=== PATIENT | female | born 1975 | race Caucasian/White ===

== ENCOUNTER 2017-03-22 10:43 | Emergency (ER) | payer MEDICAID ==
[~2017-03-22] VITALS: Ht 165.1 cm; Wt 87.2 kg
[~2017-03-22 10:43] MED LIST: ALPR-475 PO; DOXYCYCLINE PO; FLUO20CA19 PO; HYDR-3138 PO
[2017-03-22] MEDS ORDERED: KETOROLAC 30 MG/1 ML IM ONE (12:00)
[2017-03-22] MEDS ORDERED: KETOROLAC 30 MG/1 ML ONE (12:02)
[2017-03-22 12:18] LABS: HCG UR OBC PASS
[2017-03-22 12:34] LABS: BLOOD UREA NITROGEN 19 mg/dL (7-18)
[2017-03-22] MEDS ORDERED: HYDROmorphone 1 MG/ML, 1ML ONE (13:06)
[2017-03-22] MEDS ORDERED: ONDANSETRON ODT 4 MG ONE (13:10)
[2017-03-22 13:41] VITALS: BP 112/69
[2017-03-22] MEDS ORDERED: ONDANSETRON ODT 4 MG PO ONE (14:00)
[2017-03-22] MEDS ORDERED: HYDROmorphone 1 MG/ML, 1ML IM ONE (14:00)
== END 2017-03-22 13:49 | disposition home or self-care (01) ==
LOC: ED 11:08
DX: N83.02 Follicular cyst of left ovary (principal); N94.10 Unspecified dyspareunia
CPT/HCPCS: 36415; 76830; 80048; 81003; 81025; 82040; 85025; 87210; 87491; 87591; 87808; 96372; 99285; J1170; J1885; Q0162

== ENCOUNTER 2017-05-25 16:41 | Emergency (ER) | payer MEDICAID ==
[~2017-05-25] VITALS: Ht 165.1 cm; Wt 84.5 kg
[~2017-05-25 16:41] MED LIST changes: -HYDR-3138 PO; +HYDR-3237 PO
[2017-05-25] MEDS ORDERED: SODIUM CHLORIDE FLUSH 10ML SYR IVF ONE (17:00)
[2017-05-25] MEDS ORDERED: FAMOTIDINE 20 MG/2 ML IVP ONE (17:00)
[2017-05-25] MEDS ORDERED: ONDANSETRON 2MG/ML, 2ML IVPush ONE (17:00)
[2017-05-25] MEDS ORDERED: MORPHINE SULFATE 4 MG/ML, 1ML IVPush PRN (17:00)
[2017-05-25 17:14] LABS: HEMATOCRIT 39.3 % (34.6-47.8); HEMOGLOBIN 13.1 g/dL (11.7-16.4); WHITE BLOOD COUNT 13.6 x10^3/uL (3.4-10)
[2017-05-25 17:21] LABS: ASPARTATE AMINO TRANSFERASE 12 U/L (15-37); BLOOD UREA NITROGEN 17 mg/dL (7-18)
[2017-05-25] MEDS ORDERED: META800T PO (18:49)
[2017-05-25] MEDS ORDERED: BUPR200T PO (18:49)
[2017-05-25] MEDS ORDERED: OXYC-306 PO (18:49)
[2017-05-25] MEDS ORDERED: MELO7.5T31 PO (18:49)
[2017-05-25] MEDS ORDERED: DOXY100T10 PO (18:49)
[2017-05-25] MEDS ORDERED: ONDANSETRON 2MG/ML, 2ML ONE (19:02)
[2017-05-25] MEDS ORDERED: MORPHINE SULFATE 4 MG/ML, 1ML ONE (19:02)
[2017-05-25] MEDS ORDERED: FAMOTIDINE 20 MG/2 ML ONE (19:03)
[2017-05-25] MEDS ORDERED: AMPICILLIN/SULBACTAM 3 GM in SODIUM CHLORIDE 0.9% 100 ML IV ONE (20:00)
[2017-05-25] MEDS ORDERED: AMPICILLIN/SULBACTAM 3 GM IV ONE (20:00)
[2017-05-25] MEDS ORDERED: SODIUM CHLORIDE 0.9% 1,000ML IVBOLUS ONE (20:00)
[2017-05-25 22:21] VITALS: BP 111/67
== END 2017-05-25 22:25 | disposition home or self-care (01) ==
LOC: ED 19:56
DX: S30.1XXA Contusion of abdominal wall, initial encounter (principal); L03.115 Cellulitis of right lower limb; Z98.51 Tubal ligation status; X58.XXXA Exposure to other specified factors, initial encounter; Y93.89 Activity, other specified; Y92.89 Other specified places as the place of occurrence of the external cause; Y99.9 Unspecified external cause status
CPT/HCPCS: 36415; 74022; 76700; 80053; 81003; 83605; 83690; 84703; 85025; 87040; 93971; 96365; 96366; 96375; 99285; J0295; J2405; J7030; S0028

== ENCOUNTER 2017-05-27 08:52 | Emergency (ER) | payer MEDICAID ==
[~2017-05-27] VITALS: Ht 165.1 cm; Wt 85.6 kg
[~2017-05-27 08:52] MED LIST changes: +BUPR200T PO; +DOXY100T10 PO; +MELO7.5T31 PO; +META800T PO; +OXYC-306 PO
[2017-05-27 10:00] LABS: HEMATOCRIT 33.4 % (34.6-47.8); HEMOGLOBIN 11.3 g/dL (11.7-16.4); WHITE BLOOD COUNT 8.1 x10^3/uL (3.4-10)
[2017-05-27 10:24] VITALS: BP 134/68
[2017-05-28] MEDS ORDERED: CLIN300C8 PO (22:35)
== END 2017-05-27 10:26 | disposition home or self-care (01) ==
LOC: ED 09:24
DX: L03.115 Cellulitis of right lower limb (principal); F43.10 Post-traumatic stress disorder, unspecified; F32.9 Major depressive disorder, single episode, unspecified; F17.210 Nicotine dependence, cigarettes, uncomplicated; D25.9 Leiomyoma of uterus, unspecified
CPT/HCPCS: 36415; 85025; 99283

== ENCOUNTER 2017-05-28 21:20 | Inpatient (IN) | payer MEDICAID ==
[~2017-05-28] VITALS: Ht 165.1 cm; Wt 86.4 kg
[2017-05-28] MEDS ORDERED: HYDROcodone/APAP 5/325 TABLET PO ONE (22:00)
[2017-05-28] MEDS ORDERED: HYDROcodone/APAP 5/325 TABLET ONE (22:08)
[2017-05-28] MEDS ORDERED: CEFTAROLINE 600 MG in SODIUM CHLORIDE 0.9% 100 ML IV ONE (22:30)
[2017-05-28] MEDS ORDERED: SODIUM CHLORIDE 0.9% 1,000ML IVBOLUS ONE (22:30)
[2017-05-28] MEDS ORDERED: SODIUM CHLORIDE FLUSH 10ML SYR IVF ONE (22:30)
[2017-05-28] MEDS ORDERED: CLIN300C8 PO (22:35)
[2017-05-28 22:46] LABS: HEMATOCRIT 37.1 % (34.6-47.8); HEMOGLOBIN 12.4 g/dL (11.7-16.4); WHITE BLOOD COUNT 11.5 x10^3/uL (3.4-10)
[2017-05-28 22:48] LABS: BLOOD UREA NITROGEN 13 mg/dL (7-18)
[2017-05-28] MEDS ORDERED: SODIUM CHLORIDE 0.9% 1,000 ML IV ONE (23:28)
[2017-05-28] MEDS ORDERED: MORPHINE SULFATE 4 MG/ML, 1ML IVPush PRN (23:30)
[2017-05-28] MEDS ORDERED: ONDANSETRON 2MG/ML, 2ML IVPush PRN (23:30)
[2017-05-29] MEDS ORDERED: LABETALOL 5MG/ML, 20ML IVPush PRN
[2017-05-29] MEDS ORDERED: POLYETHYLENE GLYCOL 17 GM PACKET PO PRN
[2017-05-29] MEDS ORDERED: ONDANSETRON 2MG/ML, 2ML IVPush PRN
[2017-05-29] MEDS ORDERED: morphine SULFATE 10 MG/ML, 1ML IVPush PRN
[2017-05-29] MEDS ORDERED: ACETAMINOPHEN 325 MG TABLET PO PRN
[2017-05-29] MEDS ORDERED: hydrALAzine 20 MG/ML, 1ML IVPush PRN
[2017-05-29] MEDS ORDERED: BISACODYL 10 MG SUPP PR PRN
[2017-05-29] MEDS ORDERED: VANCOMYCIN PMX 1GM/200ML 200 ML IV ONE (00:30)
[2017-05-29] MEDS ORDERED: VANCOMYCIN PER PHARMACY MC PRN (00:30)
[2017-05-29] MEDS: ENOXAPARIN 40 MG/0.4 ML SQ SCH ×2 (01:14→23:20)
[2017-05-29] MEDS: SODIUM CHLORIDE 0.9% 1,000 ML IV SCH ×2 (01:14→14:49)
[2017-05-29] MEDS ORDERED: PHARMACOKINETIC MONITORING MC PRN (01:30)
[2017-05-29 01:32] LABS: PATH.CAST-FLAG NOT PRESENT; SPERM-FLAG NOT PRESENT; SRC-FLAG NOT PRESENT; XTAL-FLAG NOT PRESENT; YLC-FLAG NOT PRESENT
[2017-05-29 01:53] VITALS: BP 109/67
[2017-05-29] MEDS: VANCOMYCIN 1,700 MG in SODIUM CHLORIDE 0.9% 250 ML IV SCH ×2 (02:45→14:50)
[2017-05-29] MEDS ORDERED: DIPHENHYDRAMINE 25 MG CAPSULE PO ONE (04:30)
[2017-05-29] MEDS: AMPICILLIN/SULBACTAM 3 GM in SODIUM CHLORIDE 0.9% 100 ML IV SCH ×4 (04:43→23:16)
[2017-05-29] MEDS ORDERED: OMNIPAQUE 350 MG/ML, 100ML BOTTLE ONE (04:48)
[2017-05-29 05:38] LABS: BLOOD UREA NITROGEN 13 mg/dL (7-18)
[2017-05-29 05:42] LABS: ASPARTATE AMINO TRANSFERASE 11 U/L (15-37)
[2017-05-29 05:47] LABS: HEMATOCRIT 32.2 % (34.6-47.8); HEMOGLOBIN 10.9 g/dL (11.7-16.4); WHITE BLOOD COUNT 8.3 x10^3/uL (3.4-10)
[2017-05-29] MEDS: Metaxalone** 800 MG PO SCH ×3 (08:34→21:56)
[2017-05-29] MEDS: DOXYCYCLINE 50MG CAPSULE PO SCH (08:35)
[2017-05-29] MEDS: SENNA/DOCUSATE TABLET PO SCH (08:35)
[2017-05-29] MEDS: BUPROPION 100 MG TABLET PO SCH ×2 (08:36→21:56)
[2017-05-29 08:40] VITALS: BP 108/66
[2017-05-29] MEDS: DIPHENHYDRAMINE 50 MG/ML, 1ML IVPush PRN (14:50)
[2017-05-29 14:57] VITALS: BP 109/68
[2017-05-29] MEDS: OXYcodone IR 5MG TABLET PO PRN ×2 (17:18→22:06)
[2017-05-29 19:12] VITALS: BP 109/62
[2017-05-30 01:59] VITALS: BP 106/70
[2017-05-30] MEDS: DIPHENHYDRAMINE 50 MG/ML, 1ML IVPush PRN ×2 (02:04→14:19)
[2017-05-30] MEDS: VANCOMYCIN 1,700 MG in SODIUM CHLORIDE 0.9% 250 ML IV SCH ×2 (02:06→14:19)
[2017-05-30] MEDS: AMPICILLIN/SULBACTAM 3 GM in SODIUM CHLORIDE 0.9% 100 ML IV SCH ×4 (05:22→22:51)
[2017-05-30 07:50] VITALS: BP 114/71
[2017-05-30] MEDS: SENNA/DOCUSATE TABLET PO SCH (07:57)
[2017-05-30] MEDS: Metaxalone** 800 MG PO SCH (07:57)
[2017-05-30] MEDS: DOXYCYCLINE 50MG CAPSULE PO SCH (07:57)
[2017-05-30] MEDS: BUPROPION 100 MG TABLET PO SCH ×2 (07:58→21:03)
[2017-05-30] MEDS: OXYcodone IR 5MG TABLET PO PRN ×2 (10:41→14:22)
[2017-05-30 14:17] VITALS: BP 119/79
[2017-05-30 18:36] LABS: HCG UR OBC PASS
[2017-05-30] MEDS ORDERED: MIDAZOLAM 1 MG/ML, 2ML ONE (19:01)
[2017-05-30] MEDS ORDERED: FENTANYL PF 100 MCG/2ML ONE ×2 (19:01)
[2017-05-30] MEDS ORDERED: BALANCED SALT OPHTH IRRIG SOLN 18ML ONE (19:07)
[2017-05-30] MEDS ORDERED: PROPOFOL 10 MG/ML, 20ML ONE (19:21)
[2017-05-30] MEDS ORDERED: DEXAMETHASONE 4 MG/ML, 1ML ONE (19:21)
[2017-05-30] MEDS ORDERED: ONDANSETRON 2MG/ML, 2ML ONE (19:21)
[2017-05-30] MEDS ORDERED: PROMETHAZINE 25 MG/ML, 1ML IV PRN (19:30)
[2017-05-30] MEDS ORDERED: LABETALOL 5MG/ML, 20ML IV PRN (19:30)
[2017-05-30] MEDS ORDERED: ONDANSETRON 2MG/ML, 2ML IVPush PRN (19:30)
[2017-05-30] MEDS ORDERED: MEPERIDINE/PF 25MG/0.5ML IVPush PRN (19:30)
[2017-05-30] MEDS ORDERED: OXYcodone 5 MG/5 ML ORAL.SOL UDC PO PRN (19:30)
[2017-05-30] MEDS ORDERED: FENTANYL PF 100 MCG/2ML IV PRN (19:30)
[2017-05-30] MEDS ORDERED: hydrALAzine 20 MG/ML, 1ML IV PRN (19:30)
[2017-05-30] MEDS ORDERED: HYDROmorphone 2 MG/ML, 1ML ONE (19:55)
[2017-05-30] MEDS: HYDROmorphone 1 MG/ML, 1ML IV PRN ×4 (19:57→20:15)
[2017-05-30 20:45] VITALS: BP 111/68
[2017-05-30] MEDS: PRAZOSIN 1 MG CAPSULE PO SCH (21:03)
[2017-05-30] MEDS: OXYcodone/APAP 5/325MG TABLET PO PRN (21:12)
[2017-05-30 23:42] VITALS: BP 106/65
[2017-05-31] MEDS: VANCOMYCIN 1,700 MG in SODIUM CHLORIDE 0.9% 250 ML IV SCH ×2 (02:01→14:42)
[2017-05-31] MEDS: DIPHENHYDRAMINE 50 MG/ML, 1ML IVPush PRN ×2 (02:01→14:42)
[2017-05-31] MEDS: OXYcodone/APAP 5/325MG TABLET PO PRN ×5 (02:09→20:04)
[2017-05-31 02:53] VITALS: BP 96/50
[2017-05-31] MEDS: AMPICILLIN/SULBACTAM 3 GM in SODIUM CHLORIDE 0.9% 100 ML IV SCH ×4 (05:18→23:17)
[2017-05-31 08:08] VITALS: BP 101/66
[2017-05-31] MEDS: SENNA/DOCUSATE TABLET PO SCH (09:00)
[2017-05-31] MEDS: BUPROPION 100 MG TABLET PO SCH ×2 (09:10→20:05)
[2017-05-31] MEDS: DOXYCYCLINE 50MG CAPSULE PO SCH (09:10)
[2017-05-31] MEDS: PRAZOSIN 1 MG CAPSULE PO SCH ×2 (10:04→20:04)
[2017-05-31 14:50] VITALS: BP 119/80
[2017-05-31 19:19] VITALS: BP 119/71
[2017-06-01] MEDS: OXYcodone/APAP 5/325MG TABLET PO PRN ×6 (00:19→23:17)
[2017-06-01 01:24] VITALS: BP 110/75
[2017-06-01] MEDS: DIPHENHYDRAMINE 50 MG/ML, 1ML IVPush PRN ×2 (02:04→14:35)
[2017-06-01] MEDS: VANCOMYCIN 1,700 MG in SODIUM CHLORIDE 0.9% 250 ML IV SCH ×2 (02:04→14:35)
[2017-06-01] MEDS: AMPICILLIN/SULBACTAM 3 GM in SODIUM CHLORIDE 0.9% 100 ML IV SCH ×4 (04:40→23:08)
[2017-06-01 07:58] VITALS: BP 118/78
[2017-06-01] MEDS: PRAZOSIN 1 MG CAPSULE PO SCH ×2 (08:45→21:17)
[2017-06-01] MEDS: DOXYCYCLINE 50MG CAPSULE PO SCH (08:46)
[2017-06-01] MEDS: BUPROPION 100 MG TABLET PO SCH ×2 (08:46→21:18)
[2017-06-01] MEDS: SENNA/DOCUSATE TABLET PO SCH (08:47)
[2017-06-01 13:46] VITALS: BP 112/71
[2017-06-01 22:18] VITALS: BP 117/75
[2017-06-02] MEDS: DIPHENHYDRAMINE 50 MG/ML, 1ML IVPush PRN ×2 (01:59→15:26)
[2017-06-02] MEDS: VANCOMYCIN 1,700 MG in SODIUM CHLORIDE 0.9% 250 ML IV SCH ×2 (01:59→15:26)
[2017-06-02 02:01] VITALS: BP 118/79
[2017-06-02] MEDS: AMPICILLIN/SULBACTAM 3 GM in SODIUM CHLORIDE 0.9% 100 ML IV SCH ×3 (05:19→17:29)
[2017-06-02 06:59] VITALS: BP 115/79
[2017-06-02] MEDS: PRAZOSIN 1 MG CAPSULE PO SCH (09:18)
[2017-06-02] MEDS: DOXYCYCLINE 50MG CAPSULE PO SCH (09:18)
[2017-06-02] MEDS: SENNA/DOCUSATE TABLET PO SCH (09:18)
[2017-06-02] MEDS: BUPROPION 100 MG TABLET PO SCH ×2 (09:18→17:51)
[2017-06-02] MEDS: OXYcodone/APAP 5/325MG TABLET PO PRN ×3 (09:26→20:51)
[2017-06-02 12:40] VITALS: BP 114/79
[2017-06-02 19:40] VITALS: BP 108/64
[2017-06-02] MEDS: PRAZOSIN 2 MG CAPSULE PO SCH (20:52)
[2017-06-03] MEDS: AMPICILLIN/SULBACTAM 3 GM in SODIUM CHLORIDE 0.9% 100 ML IV SCH ×4 (01:16→19:57)
[2017-06-03 01:26] VITALS: BP 106/59
[2017-06-03] MEDS: OXYcodone/APAP 5/325MG TABLET PO PRN ×5 (01:33→21:20)
[2017-06-03] MEDS: VANCOMYCIN 1,700 MG in SODIUM CHLORIDE 0.9% 250 ML IV SCH (02:21)
[2017-06-03 07:57] VITALS: BP 114/64
[2017-06-03] MEDS: DOXYCYCLINE 50MG CAPSULE PO SCH (10:00)
[2017-06-03] MEDS: BUPROPION 100 MG TABLET PO SCH ×2 (10:00→19:57)
[2017-06-03] MEDS: SENNA/DOCUSATE TABLET PO SCH (10:02)
[2017-06-03] MEDS: PRAZOSIN 1 MG CAPSULE PO SCH (10:08)
[2017-06-03 13:59] VITALS: BP 128/74
[2017-06-03 19:01] VITALS: BP 126/71
[2017-06-03] MEDS: PRAZOSIN 2 MG CAPSULE PO SCH (19:57)
[2017-06-04] MEDS ORDERED: VANCOMYCIN 1,700 MG in SODIUM CHLORIDE 0.9% 250 ML IV SCH
[2017-06-04] MEDS: DIPHENHYDRAMINE 50 MG/ML, 1ML IVPush PRN (00:18)
[2017-06-04 00:35] VITALS: BP 113/69
[2017-06-04] MEDS: AMPICILLIN/SULBACTAM 3 GM in SODIUM CHLORIDE 0.9% 100 ML IV SCH ×2 (02:34→08:33)
[2017-06-04 07:38] VITALS: BP 99/59
[2017-06-04] MEDS: SENNA/DOCUSATE TABLET PO SCH (08:34)
[2017-06-04] MEDS: DOXYCYCLINE 50MG CAPSULE PO SCH (08:34)
[2017-06-04] MEDS: BUPROPION 100 MG TABLET PO SCH (08:35)
[2017-06-04] MEDS: OXYcodone/APAP 5/325MG TABLET PO PRN ×2 (08:43→13:02)
[2017-06-04] MEDS ORDERED: LACT1CAP24 PO (11:48)
[2017-06-04] MEDS ORDERED: POLY17PO5 PO (11:48)
[2017-06-04] MEDS ORDERED: PRAZ2CAP2 PO (11:54)
[2017-06-04] MEDS ORDERED: PRAZ1CAP2 PO (11:54)
[2017-06-04] MEDS ORDERED: BUPR100T11 PO (11:54)
[2017-06-04] MEDS ORDERED: LEVO500T47 PO (12:07)
[2017-06-04] MEDS ORDERED: LEVOFLOXACIN 500 MG TABLET PO SCH (12:30)
[2017-06-04 13:00] VITALS: BP 120/69
[2017-06-04] MEDS: PRAZOSIN 1 MG CAPSULE PO SCH (13:02)
[2017-06-04 13:41] VITALS: BP 116/73
== END 2017-06-04 14:15 | disposition home or self-care (01) | DRG 871 ==
LOC: ED 22:43 → EDIP 23:28 → 4NOR 05-29 00:16
PROVIDERS: ADMIT Internal Medicine; ATTEND Internal Medicine
PROC: 0Y9H0ZZ Drainage of Right Lower Leg, Open Approach (ICD-10-PCS; principal; 2017-05-30 19:30)
DX: A41.9 Sepsis, unspecified organism (principal); E43 Unspecified severe protein-calorie malnutrition; F33.1 Major depressive disorder, recurrent, moderate; L03.115 Cellulitis of right lower limb; F11.20 Opioid dependence, uncomplicated; N39.0 Urinary tract infection, site not specified; B96.20 Unspecified Escherichia coli [E. coli] as the cause of diseases classified elsewhere; F06.4 Anxiety disorder due to known physiological condition; F43.0 Acute stress reaction; F17.200 Nicotine dependence, unspecified, uncomplicated; F43.10 Post-traumatic stress disorder, unspecified; I10 Essential (primary) hypertension; G89.29 Other chronic pain; J45.909 Unspecified asthma, uncomplicated; Z79.2 Long term (current) use of antibiotics; Z81.8 Family history of other mental and behavioral disorders; Z83.3 Family history of diabetes mellitus; Z86.14 Personal history of Methicillin resistant Staphylococcus aureus infection; Z68.31 Body mass index [BMI] 31.0-31.9, adult; Z88.8 Allergy status to other drugs, medicaments and biological substances; Z88.2 Allergy status to sulfonamides
CPT/HCPCS: 36415; 80048; 80053; 80061; 80202; 81001; 81025; 82040; 82565; 83036; 83735; 84439; 84443; 85025; 87015; 87040; 87070; 87075; 87077; 87086; 87102; 87116; 87186; 87205; 87206; 96365; J0295; J0712; J1100; J1170; J1650; J2250; J2405; J2704; J3010; J3370; Q9967; J1200; J7030; J7050; Q0163

== ENCOUNTER 2017-08-06 03:14 | Emergency (ER) | payer MEDICAID ==
[~2017-08-06] VITALS: Ht 165.1 cm; Wt 80.0 kg
[~2017-08-06 03:14] MED LIST changes: +BUPR100T11 PO; +CLIN300C8 PO; +LACT1CAP24 PO; +LEVO500T47 PO; +POLY17PO5 PO; +PRAZ1CAP2 PO; +PRAZ2CAP2 PO
[2017-08-06 03:22] VITALS: BP 130/99
== END 2017-08-06 05:12 | disposition home or self-care (01) ==
LOC: ED 04:03
DX: S06.0X1A Concussion with loss of consciousness of 30 minutes or less, initial encounter (principal); F32.9 Major depressive disorder, single episode, unspecified; Z87.891 Personal history of nicotine dependence; W22.01XA Walked into wall, initial encounter; Y93.89 Activity, other specified; Y92.89 Other specified places as the place of occurrence of the external cause; Y99.8 Other external cause status
CPT/HCPCS: 70450; 72125; 99284

== ENCOUNTER 2017-09-25 14:31 | Emergency (ER) | payer MEDICAID ==
[~2017-09-25] VITALS: Ht 165.1 cm; Wt 75.9 kg
[2017-09-25 16:27] VITALS: BP 127/79
== END 2017-09-25 16:29 | disposition home or self-care (01) ==
LOC: ED 15:00
DX: J20.8 Acute bronchitis due to other specified organisms (principal); B96.89 Other specified bacterial agents as the cause of diseases classified elsewhere; J01.10 Acute frontal sinusitis, unspecified; G89.29 Other chronic pain; M54.9 Dorsalgia, unspecified; M79.89 Other specified soft tissue disorders; F43.10 Post-traumatic stress disorder, unspecified
CPT/HCPCS: 99283

== ENCOUNTER 2018-11-03 09:51 | Outpatient (CLI) | payer MEDICAID | END 2018-11-03 23:59 | disposition home or self-care (01) | LOC: WOUND 09:51 | PROVIDERS: ATTEND Family Medicine | DX: T81.31XD Disruption of external operation (surgical) wound, not elsewhere classified, subsequent encounter (principal); A41.02 Sepsis due to Methicillin resistant Staphylococcus aureus; F41.9 Anxiety disorder, unspecified; M06.9 Rheumatoid arthritis, unspecified; F32.9 Major depressive disorder, single episode, unspecified; E66.01 Morbid (severe) obesity due to excess calories; Z68.32 Body mass index [BMI] 32.0-32.9, adult; Z87.891 Personal history of nicotine dependence; Y83.8 Other surgical procedures as the cause of abnormal reaction of the patient, or of later complication, without mention of misadventure at the time of the procedure | CPT/HCPCS: 11042; 99205; 99215 ==

== ENCOUNTER → 2018-11-13 | Outpatient (CLI) | payer MEDICAID | END | disposition home or self-care (01) | LOC: WOUND 15:43 | PROVIDERS: ATTEND Internal Medicine | DX: T81.31XD Disruption of external operation (surgical) wound, not elsewhere classified, subsequent encounter (principal); A41.02 Sepsis due to Methicillin resistant Staphylococcus aureus; F41.9 Anxiety disorder, unspecified; M06.9 Rheumatoid arthritis, unspecified; E66.01 Morbid (severe) obesity due to excess calories; F32.9 Major depressive disorder, single episode, unspecified; Z87.891 Personal history of nicotine dependence; Y83.8 Other surgical procedures as the cause of abnormal reaction of the patient, or of later complication, without mention of misadventure at the time of the procedure | CPT/HCPCS: 97605 ==

== ENCOUNTER → 2018-11-15 | Outpatient (CLI) | payer MEDICAID | END | disposition home or self-care (01) | LOC: WOUND 11:15 | PROVIDERS: ATTEND Internal Medicine | DX: T81.31XD Disruption of external operation (surgical) wound, not elsewhere classified, subsequent encounter (principal); A41.02 Sepsis due to Methicillin resistant Staphylococcus aureus; F41.9 Anxiety disorder, unspecified; M06.9 Rheumatoid arthritis, unspecified; E66.01 Morbid (severe) obesity due to excess calories; F32.9 Major depressive disorder, single episode, unspecified; Z87.891 Personal history of nicotine dependence; Y83.8 Other surgical procedures as the cause of abnormal reaction of the patient, or of later complication, without mention of misadventure at the time of the procedure | CPT/HCPCS: 97605 ==

== ENCOUNTER → 2018-11-17 | Outpatient (CLI) | payer MEDICAID | END | disposition home or self-care (01) | LOC: WOUND 14:31 | PROVIDERS: ATTEND Family Medicine | DX: T81.31XD Disruption of external operation (surgical) wound, not elsewhere classified, subsequent encounter (principal); A41.02 Sepsis due to Methicillin resistant Staphylococcus aureus; F41.9 Anxiety disorder, unspecified; M06.9 Rheumatoid arthritis, unspecified; F32.9 Major depressive disorder, single episode, unspecified; E66.01 Morbid (severe) obesity due to excess calories; Z68.32 Body mass index [BMI] 32.0-32.9, adult; Z87.891 Personal history of nicotine dependence; Y83.8 Other surgical procedures as the cause of abnormal reaction of the patient, or of later complication, without mention of misadventure at the time of the procedure | CPT/HCPCS: 97605 ==

== ENCOUNTER → 2018-11-20 | Outpatient (CLI) | payer MEDICAID | END | disposition home or self-care (01) | LOC: WOUND 10:20 | PROVIDERS: ATTEND Internal Medicine | DX: T81.31XD Disruption of external operation (surgical) wound, not elsewhere classified, subsequent encounter (principal); A41.02 Sepsis due to Methicillin resistant Staphylococcus aureus; F41.9 Anxiety disorder, unspecified; M06.9 Rheumatoid arthritis, unspecified; F32.9 Major depressive disorder, single episode, unspecified; E66.01 Morbid (severe) obesity due to excess calories; Z68.32 Body mass index [BMI] 32.0-32.9, adult; Z87.891 Personal history of nicotine dependence; Y83.8 Other surgical procedures as the cause of abnormal reaction of the patient, or of later complication, without mention of misadventure at the time of the procedure | CPT/HCPCS: 97605 ==

== ENCOUNTER → 2018-11-22 | Outpatient (CLI) | payer MEDICAID | END | disposition home or self-care (01) | LOC: WOUND 14:26 | PROVIDERS: ATTEND Internal Medicine | DX: T81.31XD Disruption of external operation (surgical) wound, not elsewhere classified, subsequent encounter (principal); A41.02 Sepsis due to Methicillin resistant Staphylococcus aureus; F32.9 Major depressive disorder, single episode, unspecified; F41.9 Anxiety disorder, unspecified; M06.9 Rheumatoid arthritis, unspecified; E66.01 Morbid (severe) obesity due to excess calories; Z68.32 Body mass index [BMI] 32.0-32.9, adult; Z87.891 Personal history of nicotine dependence; Y83.8 Other surgical procedures as the cause of abnormal reaction of the patient, or of later complication, without mention of misadventure at the time of the procedure | CPT/HCPCS: 97605 ==

== ENCOUNTER → 2018-11-24 | Outpatient (CLI) | payer MEDICAID | END | disposition home or self-care (01) | LOC: WOUND 14:00 | PROVIDERS: ATTEND Family Medicine | DX: T81.31XD Disruption of external operation (surgical) wound, not elsewhere classified, subsequent encounter (principal); A41.02 Sepsis due to Methicillin resistant Staphylococcus aureus; F41.9 Anxiety disorder, unspecified; M06.9 Rheumatoid arthritis, unspecified; F32.9 Major depressive disorder, single episode, unspecified; E66.01 Morbid (severe) obesity due to excess calories; Z68.32 Body mass index [BMI] 32.0-32.9, adult; Z87.891 Personal history of nicotine dependence; Y83.8 Other surgical procedures as the cause of abnormal reaction of the patient, or of later complication, without mention of misadventure at the time of the procedure | CPT/HCPCS: 97605 ==

== ENCOUNTER → 2018-11-27 | Outpatient (CLI) | payer MEDICAID | END | disposition home or self-care (01) | LOC: WOUND 14:50 | PROVIDERS: ATTEND Internal Medicine | DX: T81.31XD Disruption of external operation (surgical) wound, not elsewhere classified, subsequent encounter (principal); A41.02 Sepsis due to Methicillin resistant Staphylococcus aureus; F41.9 Anxiety disorder, unspecified; M06.9 Rheumatoid arthritis, unspecified; E66.01 Morbid (severe) obesity due to excess calories; F32.9 Major depressive disorder, single episode, unspecified; Z87.891 Personal history of nicotine dependence | CPT/HCPCS: 99213 ==

== ENCOUNTER → 2018-11-29 | Outpatient (CLI) | payer MEDICAID | END | disposition home or self-care (01) | LOC: WOUND 08:00 | PROVIDERS: ATTEND Internal Medicine | DX: T81.31XD Disruption of external operation (surgical) wound, not elsewhere classified, subsequent encounter (principal); A41.02 Sepsis due to Methicillin resistant Staphylococcus aureus; F41.9 Anxiety disorder, unspecified; F32.9 Major depressive disorder, single episode, unspecified; M06.9 Rheumatoid arthritis, unspecified; E66.01 Morbid (severe) obesity due to excess calories; Z87.891 Personal history of nicotine dependence; Y83.8 Other surgical procedures as the cause of abnormal reaction of the patient, or of later complication, without mention of misadventure at the time of the procedure | CPT/HCPCS: 97605 ==

== ENCOUNTER → 2018-12-01 | Outpatient (CLI) | payer MEDICAID | END | disposition home or self-care (01) | LOC: WOUND 10:30 | PROVIDERS: ATTEND Family Medicine | DX: T81.31XD Disruption of external operation (surgical) wound, not elsewhere classified, subsequent encounter (principal); A41.02 Sepsis due to Methicillin resistant Staphylococcus aureus; F41.9 Anxiety disorder, unspecified; E66.01 Morbid (severe) obesity due to excess calories; M06.9 Rheumatoid arthritis, unspecified; F32.9 Major depressive disorder, single episode, unspecified; Z68.32 Body mass index [BMI] 32.0-32.9, adult; Z87.891 Personal history of nicotine dependence; Y83.8 Other surgical procedures as the cause of abnormal reaction of the patient, or of later complication, without mention of misadventure at the time of the procedure | CPT/HCPCS: 97605 ==

== ENCOUNTER → 2018-12-04 | Outpatient (CLI) | payer MEDICAID | END | disposition home or self-care (01) | LOC: WOUND 14:41 | PROVIDERS: ATTEND Internal Medicine | DX: T81.31XD Disruption of external operation (surgical) wound, not elsewhere classified, subsequent encounter (principal); A41.02 Sepsis due to Methicillin resistant Staphylococcus aureus; F41.9 Anxiety disorder, unspecified; M06.9 Rheumatoid arthritis, unspecified; E66.01 Morbid (severe) obesity due to excess calories; F32.9 Major depressive disorder, single episode, unspecified; Z87.891 Personal history of nicotine dependence; Y83.8 Other surgical procedures as the cause of abnormal reaction of the patient, or of later complication, without mention of misadventure at the time of the procedure | CPT/HCPCS: 97605 ==

== ENCOUNTER → 2018-12-06 | Outpatient (CLI) | payer MEDICAID | END | disposition home or self-care (01) | LOC: WOUND 14:35 | PROVIDERS: ATTEND Internal Medicine | DX: T81.31XD Disruption of external operation (surgical) wound, not elsewhere classified, subsequent encounter (principal); A41.02 Sepsis due to Methicillin resistant Staphylococcus aureus; E66.01 Morbid (severe) obesity due to excess calories; F32.9 Major depressive disorder, single episode, unspecified; F41.9 Anxiety disorder, unspecified; M06.9 Rheumatoid arthritis, unspecified; Z87.891 Personal history of nicotine dependence; Y83.8 Other surgical procedures as the cause of abnormal reaction of the patient, or of later complication, without mention of misadventure at the time of the procedure | CPT/HCPCS: 97605 ==

== ENCOUNTER → 2018-12-08 | Outpatient (CLI) | payer MEDICAID | END | disposition home or self-care (01) | LOC: WOUND 15:02 | PROVIDERS: ATTEND Family Medicine | DX: T81.31XD Disruption of external operation (surgical) wound, not elsewhere classified, subsequent encounter (principal); A41.02 Sepsis due to Methicillin resistant Staphylococcus aureus; E66.01 Morbid (severe) obesity due to excess calories; M06.9 Rheumatoid arthritis, unspecified; F41.9 Anxiety disorder, unspecified; F32.9 Major depressive disorder, single episode, unspecified; Z87.891 Personal history of nicotine dependence; Z68.32 Body mass index [BMI] 32.0-32.9, adult; Y83.8 Other surgical procedures as the cause of abnormal reaction of the patient, or of later complication, without mention of misadventure at the time of the procedure | CPT/HCPCS: 97597; 97598 ==

== ENCOUNTER → 2018-12-11 | Outpatient (CLI) | payer MEDICAID | END | disposition home or self-care (01) | LOC: WOUND 13:17 | PROVIDERS: ATTEND Internal Medicine | DX: T81.31XD Disruption of external operation (surgical) wound, not elsewhere classified, subsequent encounter (principal); A41.02 Sepsis due to Methicillin resistant Staphylococcus aureus; E66.01 Morbid (severe) obesity due to excess calories; M06.9 Rheumatoid arthritis, unspecified; F41.9 Anxiety disorder, unspecified; F32.9 Major depressive disorder, single episode, unspecified; Z87.891 Personal history of nicotine dependence; Y83.8 Other surgical procedures as the cause of abnormal reaction of the patient, or of later complication, without mention of misadventure at the time of the procedure | CPT/HCPCS: 97605 ==

== ENCOUNTER → 2018-12-13 | Outpatient (CLI) | payer MEDICAID | END | disposition home or self-care (01) | LOC: WOUND 13:15 | PROVIDERS: ATTEND Internal Medicine | DX: T81.31XD Disruption of external operation (surgical) wound, not elsewhere classified, subsequent encounter (principal); A41.02 Sepsis due to Methicillin resistant Staphylococcus aureus; E66.01 Morbid (severe) obesity due to excess calories; M06.9 Rheumatoid arthritis, unspecified; F41.9 Anxiety disorder, unspecified; F32.9 Major depressive disorder, single episode, unspecified; Z87.891 Personal history of nicotine dependence; Y83.8 Other surgical procedures as the cause of abnormal reaction of the patient, or of later complication, without mention of misadventure at the time of the procedure | CPT/HCPCS: 97605 ==

== ENCOUNTER → 2018-12-15 | Outpatient (CLI) | payer MEDICAID | END | disposition home or self-care (01) | LOC: WOUND 14:12 | PROVIDERS: ATTEND Family Medicine | DX: T81.31XD Disruption of external operation (surgical) wound, not elsewhere classified, subsequent encounter (principal); A41.02 Sepsis due to Methicillin resistant Staphylococcus aureus; M06.9 Rheumatoid arthritis, unspecified; F41.9 Anxiety disorder, unspecified; F32.9 Major depressive disorder, single episode, unspecified; E66.01 Morbid (severe) obesity due to excess calories; Z68.32 Body mass index [BMI] 32.0-32.9, adult; Z87.891 Personal history of nicotine dependence; Y83.8 Other surgical procedures as the cause of abnormal reaction of the patient, or of later complication, without mention of misadventure at the time of the procedure | CPT/HCPCS: 97605 ==

== ENCOUNTER → 2018-12-18 | Outpatient (CLI) | payer MEDICAID | END | disposition home or self-care (01) | LOC: WOUND 14:31 | PROVIDERS: ATTEND Internal Medicine | DX: T81.31XD Disruption of external operation (surgical) wound, not elsewhere classified, subsequent encounter (principal); A41.02 Sepsis due to Methicillin resistant Staphylococcus aureus; M06.9 Rheumatoid arthritis, unspecified; F41.9 Anxiety disorder, unspecified; F32.9 Major depressive disorder, single episode, unspecified; E66.01 Morbid (severe) obesity due to excess calories; Z68.32 Body mass index [BMI] 32.0-32.9, adult; Z87.891 Personal history of nicotine dependence; Y83.8 Other surgical procedures as the cause of abnormal reaction of the patient, or of later complication, without mention of misadventure at the time of the procedure | CPT/HCPCS: 97605 ==

== ENCOUNTER → 2018-12-20 | Outpatient (CLI) | payer MEDICAID | END | disposition home or self-care (01) | LOC: WOUND 14:36 | PROVIDERS: ATTEND Internal Medicine | DX: T81.31XD Disruption of external operation (surgical) wound, not elsewhere classified, subsequent encounter (principal); A41.02 Sepsis due to Methicillin resistant Staphylococcus aureus; M06.9 Rheumatoid arthritis, unspecified; F41.9 Anxiety disorder, unspecified; F32.9 Major depressive disorder, single episode, unspecified; E66.01 Morbid (severe) obesity due to excess calories; Z87.891 Personal history of nicotine dependence; Y83.8 Other surgical procedures as the cause of abnormal reaction of the patient, or of later complication, without mention of misadventure at the time of the procedure | CPT/HCPCS: 97605 ==

== ENCOUNTER → 2018-12-22 | Outpatient (CLI) | payer MEDICAID | END | disposition home or self-care (01) | LOC: WOUND 10:31 | PROVIDERS: ATTEND Family Medicine | DX: T81.31XD Disruption of external operation (surgical) wound, not elsewhere classified, subsequent encounter (principal); A41.02 Sepsis due to Methicillin resistant Staphylococcus aureus; M06.9 Rheumatoid arthritis, unspecified; F32.9 Major depressive disorder, single episode, unspecified; F41.9 Anxiety disorder, unspecified; E66.01 Morbid (severe) obesity due to excess calories; Z68.32 Body mass index [BMI] 32.0-32.9, adult; Z87.891 Personal history of nicotine dependence; Y83.8 Other surgical procedures as the cause of abnormal reaction of the patient, or of later complication, without mention of misadventure at the time of the procedure | CPT/HCPCS: 97605 ==

== ENCOUNTER → 2018-12-25 | Outpatient (CLI) | payer MEDICAID | END | disposition home or self-care (01) | LOC: WOUND 11:06 | PROVIDERS: ATTEND Internal Medicine | DX: T81.31XD Disruption of external operation (surgical) wound, not elsewhere classified, subsequent encounter (principal); A41.02 Sepsis due to Methicillin resistant Staphylococcus aureus; M06.9 Rheumatoid arthritis, unspecified; F41.9 Anxiety disorder, unspecified; F32.9 Major depressive disorder, single episode, unspecified; E66.01 Morbid (severe) obesity due to excess calories; Z87.891 Personal history of nicotine dependence; Y83.8 Other surgical procedures as the cause of abnormal reaction of the patient, or of later complication, without mention of misadventure at the time of the procedure | CPT/HCPCS: 97605 ==

== ENCOUNTER → 2018-12-27 | Outpatient (CLI) | payer MEDICAID | END | disposition home or self-care (01) | LOC: WOUND 11:10 | PROVIDERS: ATTEND Internal Medicine | DX: T81.31XD Disruption of external operation (surgical) wound, not elsewhere classified, subsequent encounter (principal); A41.02 Sepsis due to Methicillin resistant Staphylococcus aureus; M06.9 Rheumatoid arthritis, unspecified; F41.9 Anxiety disorder, unspecified; F32.9 Major depressive disorder, single episode, unspecified; E66.01 Morbid (severe) obesity due to excess calories; Z68.32 Body mass index [BMI] 32.0-32.9, adult; Z87.891 Personal history of nicotine dependence; Y83.8 Other surgical procedures as the cause of abnormal reaction of the patient, or of later complication, without mention of misadventure at the time of the procedure | CPT/HCPCS: 97605 ==

== ENCOUNTER → 2018-12-29 | Outpatient (CLI) | payer MEDICAID | END | disposition home or self-care (01) | LOC: WOUND 14:41 | PROVIDERS: ATTEND Family Medicine | DX: T81.31XD Disruption of external operation (surgical) wound, not elsewhere classified, subsequent encounter (principal); A41.02 Sepsis due to Methicillin resistant Staphylococcus aureus; M06.9 Rheumatoid arthritis, unspecified; F41.9 Anxiety disorder, unspecified; F32.9 Major depressive disorder, single episode, unspecified; E66.01 Morbid (severe) obesity due to excess calories; Z68.32 Body mass index [BMI] 32.0-32.9, adult; Z87.891 Personal history of nicotine dependence; Y83.8 Other surgical procedures as the cause of abnormal reaction of the patient, or of later complication, without mention of misadventure at the time of the procedure | CPT/HCPCS: 97597; 97598 ==

== ENCOUNTER → 2019-01-05 | Outpatient (CLI) | payer MEDICAID | END | disposition home or self-care (01) | LOC: WOUND 14:00 | PROVIDERS: ATTEND Family Medicine | DX: T81.31XD Disruption of external operation (surgical) wound, not elsewhere classified, subsequent encounter (principal); A41.02 Sepsis due to Methicillin resistant Staphylococcus aureus; M06.9 Rheumatoid arthritis, unspecified; F41.9 Anxiety disorder, unspecified; F32.9 Major depressive disorder, single episode, unspecified; E66.01 Morbid (severe) obesity due to excess calories; Z68.32 Body mass index [BMI] 32.0-32.9, adult; Z87.891 Personal history of nicotine dependence; Y83.8 Other surgical procedures as the cause of abnormal reaction of the patient, or of later complication, without mention of misadventure at the time of the procedure | CPT/HCPCS: 97597 ==

== ENCOUNTER → 2019-01-10 | Outpatient (CLI) | payer MEDICAID | END | disposition home or self-care (01) | LOC: WOUND 15:01 | PROVIDERS: ATTEND Internal Medicine | DX: T81.31XD Disruption of external operation (surgical) wound, not elsewhere classified, subsequent encounter (principal); A41.02 Sepsis due to Methicillin resistant Staphylococcus aureus; M06.9 Rheumatoid arthritis, unspecified; F41.9 Anxiety disorder, unspecified; F32.9 Major depressive disorder, single episode, unspecified; E66.01 Morbid (severe) obesity due to excess calories; Z68.32 Body mass index [BMI] 32.0-32.9, adult; Z87.891 Personal history of nicotine dependence; Y83.8 Other surgical procedures as the cause of abnormal reaction of the patient, or of later complication, without mention of misadventure at the time of the procedure | CPT/HCPCS: 97597 ==

== ENCOUNTER → 2019-01-17 | Outpatient (CLI) | payer MEDICAID | END | disposition home or self-care (01) | LOC: WOUND 11:19 | PROVIDERS: ATTEND Internal Medicine | DX: T81.31XD Disruption of external operation (surgical) wound, not elsewhere classified, subsequent encounter (principal); A41.02 Sepsis due to Methicillin resistant Staphylococcus aureus; M06.9 Rheumatoid arthritis, unspecified; F41.9 Anxiety disorder, unspecified; F32.9 Major depressive disorder, single episode, unspecified; Z87.891 Personal history of nicotine dependence; E66.01 Morbid (severe) obesity due to excess calories; Z68.32 Body mass index [BMI] 32.0-32.9, adult; Y83.8 Other surgical procedures as the cause of abnormal reaction of the patient, or of later complication, without mention of misadventure at the time of the procedure | CPT/HCPCS: 97597 ==

== ENCOUNTER → 2019-01-24 | Outpatient (CLI) | payer MEDICAID | END | disposition home or self-care (01) | LOC: WOUND 10:30 | PROVIDERS: ATTEND Internal Medicine | DX: T81.31XD Disruption of external operation (surgical) wound, not elsewhere classified, subsequent encounter (principal); A41.02 Sepsis due to Methicillin resistant Staphylococcus aureus; M06.9 Rheumatoid arthritis, unspecified; F41.9 Anxiety disorder, unspecified; F32.9 Major depressive disorder, single episode, unspecified; E66.01 Morbid (severe) obesity due to excess calories; Z68.32 Body mass index [BMI] 32.0-32.9, adult; Z87.891 Personal history of nicotine dependence; Y83.8 Other surgical procedures as the cause of abnormal reaction of the patient, or of later complication, without mention of misadventure at the time of the procedure | CPT/HCPCS: 97597 ==

== ENCOUNTER → 2019-01-31 | Outpatient (CLI) | payer MEDICAID | END | disposition home or self-care (01) | LOC: WOUND 11:00 | PROVIDERS: ATTEND Internal Medicine | DX: T81.31XD Disruption of external operation (surgical) wound, not elsewhere classified, subsequent encounter (principal); A41.02 Sepsis due to Methicillin resistant Staphylococcus aureus; M06.9 Rheumatoid arthritis, unspecified; F32.9 Major depressive disorder, single episode, unspecified; F41.9 Anxiety disorder, unspecified; E66.01 Morbid (severe) obesity due to excess calories; Z68.32 Body mass index [BMI] 32.0-32.9, adult; Z87.891 Personal history of nicotine dependence; Y83.8 Other surgical procedures as the cause of abnormal reaction of the patient, or of later complication, without mention of misadventure at the time of the procedure | CPT/HCPCS: 97597 ==

== ENCOUNTER → 2019-02-07 | Outpatient (CLI) | payer MEDICAID | END | disposition home or self-care (01) | LOC: WOUND 09:35 | PROVIDERS: ATTEND Internal Medicine | DX: T81.31XD Disruption of external operation (surgical) wound, not elsewhere classified, subsequent encounter (principal); A41.02 Sepsis due to Methicillin resistant Staphylococcus aureus; M06.9 Rheumatoid arthritis, unspecified; E66.01 Morbid (severe) obesity due to excess calories; F41.9 Anxiety disorder, unspecified; F32.9 Major depressive disorder, single episode, unspecified; Z68.32 Body mass index [BMI] 32.0-32.9, adult; Z87.891 Personal history of nicotine dependence; Y83.8 Other surgical procedures as the cause of abnormal reaction of the patient, or of later complication, without mention of misadventure at the time of the procedure | CPT/HCPCS: 97597 ==

== ENCOUNTER → 2019-02-21 | Outpatient (CLI) | payer MEDICAID | END | disposition home or self-care (01) | LOC: WOUND 08:15 | PROVIDERS: ATTEND Internal Medicine Cardiovascular Disease | DX: T81.31XD Disruption of external operation (surgical) wound, not elsewhere classified, subsequent encounter (principal); A41.02 Sepsis due to Methicillin resistant Staphylococcus aureus; M06.9 Rheumatoid arthritis, unspecified; F32.9 Major depressive disorder, single episode, unspecified; F41.9 Anxiety disorder, unspecified; E66.01 Morbid (severe) obesity due to excess calories; Z87.891 Personal history of nicotine dependence; Z68.32 Body mass index [BMI] 32.0-32.9, adult; Y83.8 Other surgical procedures as the cause of abnormal reaction of the patient, or of later complication, without mention of misadventure at the time of the procedure | CPT/HCPCS: 99213 ==

== ENCOUNTER → 2019-03-07 | Outpatient (CLI) | payer MEDICAID | END | disposition home or self-care (01) | LOC: WOUND 08:03 | PROVIDERS: ATTEND Internal Medicine | DX: T81.31XD Disruption of external operation (surgical) wound, not elsewhere classified, subsequent encounter (principal); A41.02 Sepsis due to Methicillin resistant Staphylococcus aureus; M06.9 Rheumatoid arthritis, unspecified; F41.9 Anxiety disorder, unspecified; F32.9 Major depressive disorder, single episode, unspecified; E66.01 Morbid (severe) obesity due to excess calories; Z87.891 Personal history of nicotine dependence; Z68.32 Body mass index [BMI] 32.0-32.9, adult; Y83.8 Other surgical procedures as the cause of abnormal reaction of the patient, or of later complication, without mention of misadventure at the time of the procedure | CPT/HCPCS: 97597 ==

== ENCOUNTER → 2019-03-14 | Outpatient (CLI) | payer MEDICAID | END | disposition home or self-care (01) | LOC: WOUND 08:14 | PROVIDERS: ATTEND Internal Medicine | DX: T81.31XD Disruption of external operation (surgical) wound, not elsewhere classified, subsequent encounter (principal); A41.02 Sepsis due to Methicillin resistant Staphylococcus aureus; M06.9 Rheumatoid arthritis, unspecified; F41.9 Anxiety disorder, unspecified; F32.9 Major depressive disorder, single episode, unspecified; E66.01 Morbid (severe) obesity due to excess calories; Z87.891 Personal history of nicotine dependence; Z68.32 Body mass index [BMI] 32.0-32.9, adult; Y83.8 Other surgical procedures as the cause of abnormal reaction of the patient, or of later complication, without mention of misadventure at the time of the procedure | CPT/HCPCS: 97597 ==

== ENCOUNTER → 2019-03-21 | Outpatient (CLI) | payer MEDICAID | END | disposition home or self-care (01) | LOC: WOUND 09:26 | PROVIDERS: ATTEND Internal Medicine | DX: T81.31XD Disruption of external operation (surgical) wound, not elsewhere classified, subsequent encounter (principal); A41.02 Sepsis due to Methicillin resistant Staphylococcus aureus; M06.9 Rheumatoid arthritis, unspecified; F41.9 Anxiety disorder, unspecified; F32.9 Major depressive disorder, single episode, unspecified; E66.01 Morbid (severe) obesity due to excess calories; Z68.32 Body mass index [BMI] 32.0-32.9, adult; Z87.891 Personal history of nicotine dependence; Y83.8 Other surgical procedures as the cause of abnormal reaction of the patient, or of later complication, without mention of misadventure at the time of the procedure | CPT/HCPCS: 97597 ==

== ENCOUNTER 2019-04-11 09:02 | Outpatient (CLI) | payer MEDICAID ==
[~2019-04-11 09:02] MED LIST changes: -ALPR-475 PO; +ALPR0.5T7 PO
== END 2019-04-11 23:59 | disposition home or self-care (01) ==
LOC: WOUND 09:02
PROVIDERS: ATTEND Internal Medicine
DX: T81.31XD Disruption of external operation (surgical) wound, not elsewhere classified, subsequent encounter (principal); A41.02 Sepsis due to Methicillin resistant Staphylococcus aureus; M06.9 Rheumatoid arthritis, unspecified; F41.9 Anxiety disorder, unspecified; F32.9 Major depressive disorder, single episode, unspecified; E66.01 Morbid (severe) obesity due to excess calories; Z68.32 Body mass index [BMI] 32.0-32.9, adult; Z87.891 Personal history of nicotine dependence; Y83.8 Other surgical procedures as the cause of abnormal reaction of the patient, or of later complication, without mention of misadventure at the time of the procedure
CPT/HCPCS: 97597

== ENCOUNTER 2019-04-18 08:47 | Outpatient (CLI) | payer MEDICAID | END 2019-04-18 23:59 | disposition home or self-care (01) | LOC: WOUND 08:47 | PROVIDERS: ATTEND Internal Medicine | DX: T81.31XD Disruption of external operation (surgical) wound, not elsewhere classified, subsequent encounter (principal); S31.109D Unspecified open wound of abdominal wall, unspecified quadrant without penetration into peritoneal cavity, subsequent encounter; A41.02 Sepsis due to Methicillin resistant Staphylococcus aureus; M06.9 Rheumatoid arthritis, unspecified; F41.9 Anxiety disorder, unspecified; F32.9 Major depressive disorder, single episode, unspecified; E66.01 Morbid (severe) obesity due to excess calories; Z68.32 Body mass index [BMI] 32.0-32.9, adult; Z87.891 Personal history of nicotine dependence; X58.XXXD Exposure to other specified factors, subsequent encounter; Y83.8 Other surgical procedures as the cause of abnormal reaction of the patient, or of later complication, without mention of misadventure at the time of the procedure | CPT/HCPCS: 97597 ==

== ENCOUNTER 2019-04-25 08:32 | Outpatient (CLI) | payer MEDICAID | END 2019-04-25 23:59 | disposition home or self-care (01) | LOC: WOUND 08:32 | PROVIDERS: ATTEND Internal Medicine | DX: T81.31XD Disruption of external operation (surgical) wound, not elsewhere classified, subsequent encounter (principal); S31.109D Unspecified open wound of abdominal wall, unspecified quadrant without penetration into peritoneal cavity, subsequent encounter; A41.02 Sepsis due to Methicillin resistant Staphylococcus aureus; M06.9 Rheumatoid arthritis, unspecified; F41.9 Anxiety disorder, unspecified; F32.9 Major depressive disorder, single episode, unspecified; E66.01 Morbid (severe) obesity due to excess calories; Z68.32 Body mass index [BMI] 32.0-32.9, adult; Z87.891 Personal history of nicotine dependence; X58.XXXD Exposure to other specified factors, subsequent encounter; Y83.8 Other surgical procedures as the cause of abnormal reaction of the patient, or of later complication, without mention of misadventure at the time of the procedure | CPT/HCPCS: 97597 ==

== ENCOUNTER 2019-05-02 08:54 | Outpatient (CLI) | payer MEDICAID | END 2019-05-02 23:59 | disposition home or self-care (01) | LOC: WOUND 08:54 | PROVIDERS: ATTEND Internal Medicine | DX: T81.31XD Disruption of external operation (surgical) wound, not elsewhere classified, subsequent encounter (principal); S31.109D Unspecified open wound of abdominal wall, unspecified quadrant without penetration into peritoneal cavity, subsequent encounter; A41.02 Sepsis due to Methicillin resistant Staphylococcus aureus; M06.9 Rheumatoid arthritis, unspecified; F41.9 Anxiety disorder, unspecified; F32.9 Major depressive disorder, single episode, unspecified; E66.01 Morbid (severe) obesity due to excess calories; Z68.32 Body mass index [BMI] 32.0-32.9, adult; Z87.891 Personal history of nicotine dependence; X58.XXXD Exposure to other specified factors, subsequent encounter; Y83.8 Other surgical procedures as the cause of abnormal reaction of the patient, or of later complication, without mention of misadventure at the time of the procedure | CPT/HCPCS: 97597 ==

== ENCOUNTER 2019-08-24 18:21 | Emergency (ER) | payer MEDICAID ==
[~2019-08-24] VITALS: Ht 165.1 cm; Wt 91.0 kg
[~2019-08-24 18:21] MED LIST changes: -DOXY100T10 PO; +DOXY100T23 PO
[2019-08-24 18:46] VITALS: BP 110/72
== END 2019-08-24 20:00 | disposition home or self-care (01) ==
LOC: ED 19:54
DX: S50.11XA Contusion of right forearm, initial encounter (principal); F17.210 Nicotine dependence, cigarettes, uncomplicated; Z88.2 Allergy status to sulfonamides; X58.XXXA Exposure to other specified factors, initial encounter; Y93.89 Activity, other specified; Y92.009 Unspecified place in unspecified non-institutional (private) residence as the place of occurrence of the external cause; Y99.8 Other external cause status
CPT/HCPCS: 99283

== ENCOUNTER 2019-11-17 07:11 | Emergency (ER) | payer MEDICAID ==
[~2019-11-17] VITALS: Ht 165.1 cm; Wt 94.8 kg
--- NOTE | 2019-11-17 08:13 | NUR ---
UA SENT PAINTING SUPERVISOR AT BEDSIDE-0OPBTAINING PIV AND LABS
[2019-11-17 08:25] LABS: CULTURE INDICATED? YES; MICROSCOPIC INDICATED
[2019-11-17 08:48] LABS: BASOPHILS # (AUTO) 0.02 x10^3/uL (0-0.1); BASOPHILS % (AUTO) 0 % (0-1); EOSINOPHILS # (AUTO) 0.17 x10^3/uL (0-0.4); EOSINOPHILS % (AUTO) 2 % (1-7); LYMPHOCYTES # (AUTO) 1.82 x10^3/uL (1-3.4); LYMPHOCYTES % (AUTO) 16 % (22-44); MD NO; MEAN CORPUSCULAR HEMOGLOBIN 29.9 pg (27.0-34.8); MEAN CORPUSCULAR HGB CONC 32.8 g/dL (32.4-35.8); MEAN CORPUSCULAR VOLUME 91.2 fL (80-100); MEAN PLATELET VOLUME 7.7 fL (7.4-10.4); MONOCYTES % (AUTO) 7 % (2-9); NEUTROPHILS # (AUTO) 8.42 x10^3/uL (1.8-6.8); NEUTROPHILS % (AUTO) 75 % (42-75); PLATELET COUNT 298 x10^3/uL (130-400); RED BLOOD COUNT 4.31 x10^6/uL (3.82-5.3); RED CELL DISTRIBUTION WIDTH 13.1 % (9.6-15.2)
[2019-11-17 08:55] LABS: ALANINE AMINOTRANSFERASE 24 U/L (12-78); ALBUMIN 3.4 g/dL (3.4-5.0); ANION GAP 4 mmol/L (5-15); CALCIUM 8.2 mg/dL (8.5-10.1); CHLORIDE 111 mmol/L (98-107); CREATININE 0.76 mg/dL (0.55-1.02)
[2019-11-17 08:59] LABS: ALKALINE PHOSPHATASE 56 U/L (45-117); BILIRUBIN,TOTAL 0.5 mg/dL (0.2-1.0); TOTAL PROTEIN 7.2 g/dL (6.4-8.2)
--- NOTE | 2019-11-17 09:34 | NUR ---
Called CT to expedite testing-estimate 30 min until exam Provider/patient updated Reports continued luq pain at 310-deferring med (took home perc this am) vss-kept NPO
[2019-11-17] MEDS ORDERED: ONDANSETRON 2MG/ML, 2ML ONE (09:56)
[2019-11-17] MEDS ORDERED: SODIUM CHLORIDE FLUSH 10ML SYR IVF ONE (10:00)
[2019-11-17] MEDS ORDERED: ONDANSETRON 2MG/ML, 2ML IVPush ONE ×2 (10:00)
--- NOTE | 2019-11-17 10:19 | NUR ---
NAUSEA IMPROVED TO 1/10 CT CALLED TO EXPIDITE IMAGING (ESTIMATED TIME OF IMAGING 1045)
--- NOTE | 2019-11-17 10:42 | NUR ---
TO CT SCAN
[2019-11-17] MEDS ORDERED: OMNIPAQUE 350 MG/ML, 100ML BOTTLE ONE (11:39)
--- NOTE | 2019-11-17 12:05 | NUR ---
PROVIDER MADE AWARE THAT ALL TESTING RESULTED. TO DETERMINE POC SHORTLY PATIENT UPDATED ON ESTIMATED POC VSS ON NIBP/POX
[2019-11-17 12:19] VITALS: BP 146/71
== END 2019-11-17 12:52 | disposition home or self-care (01) ==
LOC: ED 07:34
DX: N30.00 Acute cystitis without hematuria (principal); G89.29 Other chronic pain; R00.0 Tachycardia, unspecified
CPT/HCPCS: 36415; 74177; 80053; 81001; 83690; 84703; 85025; 87086; 96374; 99285; J2405; Q9967

== ENCOUNTER 2020-04-08 14:29 | Emergency (ER) | payer MEDICAID ==
[~2020-04-08] VITALS: Ht 165.1 cm; Wt 100.0 kg
[2020-04-08 14:33] VITALS: BP 136/84
[2020-04-08] MEDS ORDERED: LIDOCAINE-MPF 1%, 5ML ONE (14:39)
[2020-04-08] MEDS ORDERED: LIDOCAINE-MPF 1%, 5ML INFIL ONE (15:00)
== END 2020-04-08 15:40 | disposition home or self-care (01) ==
LOC: ED 15:00
DX: S71.112A Laceration without foreign body, left thigh, initial encounter (principal); X58.XXXA Exposure to other specified factors, initial encounter; Y93.89 Activity, other specified; Y92.098 Other place in other non-institutional residence as the place of occurrence of the external cause; Y99.8 Other external cause status
CPT/HCPCS: 12002; 99282

== ENCOUNTER 2020-04-17 11:18 | Emergency (ER) | payer BC, MEDICAID ==
[~2020-04-17] VITALS: Ht 165.1 cm; Wt 98.6 kg
[2020-04-17 11:22] VITALS: BP_SYST 128
[2020-04-17] MEDS ORDERED: NEOSPORIN OINT. PKT 1 PACKET ONE (11:43)
--- NOTE | 2020-04-17 12:26 | NUR ---
SUTURES REMOVED BY ED ROSE MARY FRAGOSO. POC/DC INSTRUCTIONS REVIEWED
== END 2020-04-17 12:32 | disposition home or self-care (01) ==
LOC: ED 12:03
DX: S81.812D Laceration without foreign body, left lower leg, subsequent encounter (principal); Z88.9 Allergy status to unspecified drugs, medicaments and biological substances; Z98.51 Tubal ligation status; X58.XXXD Exposure to other specified factors, subsequent encounter
CPT/HCPCS: 99283

== ENCOUNTER 2020-07-02 21:44 | Emergency (ER) | payer BC, MEDICAID ==
[~2020-07-02] VITALS: Ht 165.1 cm; Wt 100.6 kg
[2020-07-02 21:48] VITALS: BP 134/75
== END 2020-07-02 23:54 | disposition home or self-care (01) ==
LOC: ED 21:58
DX: M79.672 Pain in left foot (principal); G89.29 Other chronic pain
CPT/HCPCS: 99283

== ENCOUNTER 2020-08-28 00:14 | Emergency (ER) | payer BC, MEDICAID ==
[~2020-08-28] VITALS: Ht 165.1 cm; Wt 98.2 kg
[~2020-08-28 00:14] MED LIST changes: -CLIN300C8 PO; +CLIN300C9 PO
--- NOTE | 2020-08-28 00:36 | NUR ---
PT AMBULATORY TO ROOM WITH STEADY GAIT.
--- NOTE | 2020-08-28 00:58 | NUR ---
CONFIRMED ABX ORDER WITH PHARMACY.
[2020-08-28] MEDS ORDERED: CEFAZOLIN 1,000 MG ONE (00:59)
[2020-08-28] MEDS ORDERED: CEFAZOLIN 1,000 MG IM ONE (01:00)
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
[2020-08-28 01:48] VITALS: BP 116/70
== END 2020-08-28 01:50 | disposition home or self-care (01) ==
LOC: ED 00:51
DX: L03.031 Cellulitis of right toe (principal); Z98.51 Tubal ligation status
CPT/HCPCS: 96372; 99283; J0690

== ENCOUNTER 2020-12-27 19:32 | Emergency (ER) | payer BC, MEDICAID ==
[~2020-12-27] VITALS: Ht 165.1 cm; Wt 100.7 kg
[~2020-12-27 19:32] MED LIST changes: -BUPR200T PO; +BUPR200T3 PO; -OXYC-306 PO; +OXYC1TAB17 PO
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
[2020-12-27 20:32] LABS: BASOPHILS % (AUTO) 1 % (0-1); EOSINOPHILS % (AUTO) 2 % (1-7); LYMPHOCYTES % (AUTO) 23 % (22-44); MD NO; MEAN CORPUSCULAR HEMOGLOBIN 27.9 pg (27.0-34.8); MEAN CORPUSCULAR HGB CONC 32.5 g/dL (32.4-35.8); MEAN PLATELET VOLUME 7.6 fL (7.4-10.4); MONOCYTES % (AUTO) 8 % (2-9); NEUTROPHILS % (AUTO) 66 % (42-75); PLATELET COUNT 454 x10^3/uL (130-400); RED BLOOD COUNT 3.89 x10^6/uL (3.82-5.3); RED CELL DISTRIBUTION WIDTH 13.8 % (9.6-15.2)
[2020-12-27 20:33] LABS: MICROSCOPIC AUTO
[2020-12-27 20:41] LABS: ALANINE AMINOTRANSFERASE 19 U/L (12-78); ALBUMIN 3.3 g/dL (3.4-5.0); ANION GAP 7 mmol/L (5-15); CALCIUM 8.2 mg/dL (8.5-10.1); CHLORIDE 110 mmol/L (98-107); CREATININE 0.71 mg/dL (0.55-1.02)
[2020-12-27 20:43] LABS: ALKALINE PHOSPHATASE 54 U/L (45-117); BILIRUBIN,TOTAL 0.3 mg/dL (0.2-1.0); TOTAL PROTEIN 7.3 g/dL (6.4-8.2)
--- NOTE | 2020-12-27 21:33 | NUR ---
PT TO CT
[2020-12-27 22:05] VITALS: BP 104/59
--- NOTE | 2020-12-27 22:16 | NUR ---
gen surg paged.
== END 2020-12-27 22:56 | disposition home or self-care (01) ==
LOC: ED 20:38
DX: K43.9 Ventral hernia without obstruction or gangrene (principal); N30.00 Acute cystitis without hematuria; G89.29 Other chronic pain; R10.33 Periumbilical pain
CPT/HCPCS: 36415; 74176; 80053; 81001; 83690; 85025; 87077; 87086; 87186; 99284

== ENCOUNTER → 2021-02-06 | Outpatient (CLI) | payer MEDICAID ==
[~2021-02-06] MED LIST changes: +BUSP5TAB2 PO; +METR-90 PO; +NEOM500T PO; +ONDA4TAB7 PO; +OXYC-380 PO
[2021-02-06 13:10] LABS: BASOPHILS % (AUTO) 1 % (0-1); CHLORIDE 109 mmol/L (98-107); EOSINOPHILS % (AUTO) 0 % (1-7); LYMPHOCYTES % (AUTO) 22 % (22-44); MEAN CORPUSCULAR HEMOGLOBIN 28.2 pg (27.0-34.8); MEAN CORPUSCULAR HGB CONC 32.9 g/dL (32.4-35.8); MEAN PLATELET VOLUME 7.2 fL (7.4-10.4); MONOCYTES % (AUTO) 9 % (2-9); NEUTROPHILS % (AUTO) 68 % (42-75); PLATELET COUNT 365 x10^3/uL (130-400); RED BLOOD COUNT 4.11 x10^6/uL (3.82-5.3); RED CELL DISTRIBUTION WIDTH 15.5 % (9.6-15.2)
[2021-02-06 13:13] LABS: MD NO
[2021-02-06 13:30] LABS: ALANINE AMINOTRANSFERASE 29 U/L (12-78); ALBUMIN 3.7 g/dL (3.4-5.0); ALKALINE PHOSPHATASE 68 U/L (45-117); ANION GAP 6 mmol/L (5-15); BILIRUBIN,TOTAL 0.5 mg/dL (0.2-1.0); CALCIUM 8.5 mg/dL (8.5-10.1); CREATININE 0.69 mg/dL (0.55-1.02); TOTAL PROTEIN 7.4 g/dL (6.4-8.2)
== END | disposition home or self-care (01) ==
LOC: STAR 11:57
PROVIDERS: ATTEND Surgery
DX: Z01.812 Encounter for preprocedural laboratory examination (principal); Z20.822 Contact with and (suspected) exposure to COVID-19; K43.2 Incisional hernia without obstruction or gangrene; R94.31 Abnormal electrocardiogram [ECG] [EKG]
CPT/HCPCS: 36415; 80053; 85025; 93005; U0003; U0005

== ENCOUNTER 2021-02-12 05:42 | Inpatient (IN) | payer MEDICAID ==
[~2021-02-12] VITALS: Ht 165.1 cm; Wt 109.1 kg
[2021-02-12] MEDS ORDERED: EPINEPHRINE 1 MG/ML, 1ML ONE ×2 (07:10→10:50)
[2021-02-12] MEDS ORDERED: LIDOCAINE/PF 1%, 30ML ONE ×2 (07:10→10:50)
[2021-02-12] MEDS ORDERED: BUPIVACAINE/PF 0.5% ONE ×2 (07:10→10:50)
[2021-02-12] MEDS ORDERED: CHLORHEXIDINE 15 ML UDC ONE (13:25)
[2021-02-12] MEDS ORDERED: CHLORHEXIDINE 15 ML UDC PO ONE (13:30)
[2021-02-12] MEDS ORDERED: LACTATED RINGERS 1,000 ML IV SCH (13:30)
[2021-02-12] MEDS ORDERED: MIDAZOLAM 1 MG/ML, 2ML ONE (13:44)
[2021-02-12] MEDS ORDERED: FENTANYL PF 250 MCG/5ML ONE (13:44)
[2021-02-12 13:48] LABS: HCG UR SG 1.008 (1.003-1.030)
[2021-02-12] MEDS ORDERED: DEXAMETHASONE 4 MG/ML, 1ML ONE (14:40)
[2021-02-12] MEDS ORDERED: CEFAZOLIN 1,000 MG ONE (14:40)
[2021-02-12] MEDS ORDERED: SUGAMMADEX 200 MG/2 ML IVPush ONE (14:40)
[2021-02-12] MEDS ORDERED: ONDANSETRON 2MG/ML, 2ML ONE (14:40)
[2021-02-12] MEDS ORDERED: PROPOFOL 10 MG/ML, 20ML ONE (14:40)
[2021-02-12] MEDS ORDERED: ROCURONIUM 10MG/ML,5ML ONE ×2 (14:40)
[2021-02-12] MEDS ORDERED: HYDROmorphone 1 MG/ML, 1ML INJ ONE (15:57)
[2021-02-12] MEDS ORDERED: OXYcodone 5 MG/5 ML ORAL.SOL UDC ONE (17:26)
[2021-02-12] MEDS ORDERED: FENTANYL PF 100 MCG/2ML ONE (17:26)
[2021-02-12] MEDS ORDERED: ACETAMINOPHEN 325 MG TABLET PO PRN (17:30)
[2021-02-12] MEDS ORDERED: HYDROmorphone 2 MG/ML, 1ML IVPush PRN (17:30)
[2021-02-12] MEDS ORDERED: DIAZEPAM 5 MG/ML, 2ML IVPush PRN (17:30)
[2021-02-12] MEDS ORDERED: ALBUTEROL SULFATE 2.5 MG/3 ML NPPB PRN (17:30)
[2021-02-12] MEDS ORDERED: KETOROLAC 30 MG/1 ML IV PRN (17:30)
[2021-02-12] MEDS ORDERED: PROMETHAZINE 25 MG/ML, 1ML IV PRN (17:30)
[2021-02-12] MEDS ORDERED: LABETALOL 5MG/ML, 20ML IV PRN (17:30)
[2021-02-12] MEDS ORDERED: MEPERIDINE/PF 25MG/0.5ML IVPush PRN (17:30)
[2021-02-12] MEDS ORDERED: hydrALAzine 20 MG/ML, 1ML IV PRN (17:30)
[2021-02-12] MEDS ORDERED: OXYcodone 5 MG/5 ML ORAL.SOL UDC PO PRN (17:30)
[2021-02-12] MEDS: FENTANYL PF 100 MCG/2ML IV PRN ×2 (17:36→17:41)
[2021-02-12] MEDS: HYDROmorphone PCA 30 MG/30 ML IV PRN (18:15)
[2021-02-12] MEDS ORDERED: PROMETHAZINE 25 MG/ML, 1ML ONE (18:18)
[2021-02-12 19:11] VITALS: BP 94/64
[2021-02-12 20:00] VITALS: BP 106/63
[2021-02-12] MEDS ORDERED: DIAZEPAM 5 MG TABLET PO PRN (20:00)
[2021-02-12] MEDS ORDERED: CEFOTETAN PMX 1GM/50ML 50 ML IV SCH (20:00)
[2021-02-12] MEDS ORDERED: HYDROmorphone 2MG TABLET PO PRN ×2 (20:00→20:04)
[2021-02-12] MEDS ORDERED: ONDANSETRON 4 MG TABLET PO PRN (20:00)
[2021-02-12 23:50] VITALS: BP 87/61
[2021-02-13 00:22] VITALS: BP 101/69
[2021-02-13] MEDS ORDERED: SODIUM CHLORIDE 0.9%, 500ML IVBOLUS ONE (02:00)
[2021-02-13 03:45] VITALS: BP 99/67
[2021-02-13] MEDS: SODIUM CHLORIDE 0.9% 1,000 ML IV SCH ×3 (03:46→22:53)
[2021-02-13 05:19] LABS: BASOPHILS % (AUTO) 0 % (0-1); EOSINOPHILS % (AUTO) 0 % (1-7); LYMPHOCYTES % (AUTO) 5 % (22-44); MEAN CORPUSCULAR HEMOGLOBIN 28.3 pg (27.0-34.8); MEAN PLATELET VOLUME 7.8 fL (7.4-10.4); MONOCYTES % (AUTO) 10 % (2-9); NEUTROPHILS % (AUTO) 86 % (42-75); PLATELET COUNT 394 x10^3/uL (130-400); RED BLOOD COUNT 3.52 x10^6/uL (3.82-5.3); RED CELL DISTRIBUTION WIDTH 15.8 % (9.6-15.2)
[2021-02-13 05:29] LABS: ANION GAP 7 mmol/L (5-15); CALCIUM 7.5 mg/dL (8.5-10.1); CHLORIDE 106 mmol/L (98-107); CREATININE 0.92 mg/dL (0.55-1.02)
[2021-02-13 05:31] LABS: MD NO
[2021-02-13 07:01] VITALS: BP 98/68
[2021-02-13] MEDS ORDERED: CEFTRIAXONE 1,000 MG in DEXTROSE 5% 50 ML IVPB SCH (09:00)
[2021-02-13 09:16] VITALS: BP 107/62
[2021-02-13] MEDS: DIPHENHYDRAMINE 25 MG CAPSULE PO PRN (10:24)
[2021-02-13] MEDS: DOXYCYCLINE 100MG TABLET PO SCH ×2 (10:51→21:28)
[2021-02-13] MEDS: ONDANSETRON 2MG/ML, 2ML IVPush PRN ×2 (10:53→21:28)
[2021-02-13 18:56] VITALS: BP 111/74
[2021-02-13] MEDS: ENOXAPARIN 40 MG/0.4 ML SQ SCH (21:29)
[2021-02-14 01:51] VITALS: BP 104/68
[2021-02-14] MEDS: DIPHENHYDRAMINE 25 MG CAPSULE PO PRN (04:59)
[2021-02-14 06:33] VITALS: BP 106/69
[2021-02-14] MEDS: HYDROmorphone PCA 30 MG/30 ML IV PRN (07:03)
[2021-02-14] MEDS: DOXYCYCLINE 100MG TABLET PO SCH ×2 (08:26→21:00)
[2021-02-14] MEDS: SODIUM CHLORIDE 0.9% 1,000 ML IV SCH ×2 (08:26→23:11)
[2021-02-14] MEDS: ACETAMINOPHEN 325 MG TABLET PO PRN ×2 (08:26→14:38)
[2021-02-14 12:59] VITALS: BP 110/76
[2021-02-14 19:01] VITALS: BP 106/56
[2021-02-14] MEDS: ENOXAPARIN 40 MG/0.4 ML SQ SCH (21:00)
[2021-02-15 02:05] VITALS: BP 99/66
[2021-02-15 04:24] VITALS: BP 97/49
[2021-02-15] MEDS ORDERED: SODIUM CHLORIDE 0.9% 1,000ML IVBOLUS ONE (04:30)
[2021-02-15 07:10] VITALS: BP 109/71
[2021-02-15] MEDS: OXYcodone/APAP 7.5/325MG TABLET PO PRN ×4 (08:03→21:09)
[2021-02-15] MEDS: DOXYCYCLINE 100MG TABLET PO SCH ×2 (08:03→20:27)
[2021-02-15] MEDS: SODIUM CHLORIDE 0.9% 1,000 ML IV SCH ×2 (10:00→20:28)
[2021-02-15 11:04] VITALS: BP 115/68
[2021-02-15 13:01] VITALS: BP 92/59
[2021-02-15 19:51] VITALS: BP 100/68
[2021-02-15] MEDS: ENOXAPARIN 40 MG/0.4 ML SQ SCH (20:27)
[2021-02-16 03:50] VITALS: BP 120/79
[2021-02-16] MEDS: OXYcodone/APAP 7.5/325MG TABLET PO PRN (06:13)
[2021-02-16] MEDS: SODIUM CHLORIDE 0.9% 1,000 ML IV SCH (06:13)
[2021-02-16 07:29] VITALS: BP 119/78
[2021-02-16] MEDS: DOXYCYCLINE 100MG TABLET PO SCH (08:41)
[2021-02-16 10:48] VITALS: BP 112/72
== END 2021-02-16 11:25 | disposition home or self-care (01) | DRG 354 ==
LOC: ORIP 12:24 → 4NE 18:56
PROVIDERS: ADMIT Surgery; ATTEND Surgery
PROC: 0WPF0JZ Removal of Synthetic Substitute from Abdominal Wall, Open Approach (ICD-10-PCS; 2021-02-12)
PROC: 0WUF0JZ Supplement Abdominal Wall with Synthetic Substitute, Open Approach (ICD-10-PCS; principal; 2021-02-12 14:30)
DX: K43.2 Incisional hernia without obstruction or gangrene (principal); T85.79XA Infection and inflammatory reaction due to other internal prosthetic devices, implants and grafts, initial encounter; L03.311 Cellulitis of abdominal wall; F11.20 Opioid dependence, uncomplicated; Y83.2 Surgical operation with anastomosis, bypass or graft as the cause of abnormal reaction of the patient, or of later complication, without mention of misadventure at the time of the procedure; G89.4 Chronic pain syndrome; Z88.2 Allergy status to sulfonamides; Z88.8 Allergy status to other drugs, medicaments and biological substances
CPT/HCPCS: 36415; J3490; S0020; 80048; 81025; 85025; G0378; J0171; J0690; J0696; J1100; J1170; J1650; J2250; J2405; J2550; J2704; J3010; C1781; J7030; J7040; J7120; Q0163

== ENCOUNTER 2021-04-12 20:23 | Emergency (ER) | payer MEDICAID ==
[~2021-04-12] VITALS: Ht 165.1 cm; Wt 99.7 kg
--- NOTE | 2021-04-12 21:52 | NUR ---
received report from JAMES Culp
--- NOTE | 2021-04-12 22:01 | NUR ---
pt presents to the ed with lower back pain around her tailbone after she fell. pt states she took a percocet 10 around 1930. pt in gown, resting on [employer].
--- NOTE | 2021-04-12 22:28 | NUR ---
pt to xray
[2021-04-13 00:02] VITALS: BP 145/82
--- NOTE | 2021-04-13 00:03 | NUR ---
break rn: Patient given discharge instructions and they have confirmed that they understand the instructions. Patient ambulatory with steady gait. NAD, all questions answered appropriately, denies additional needs at this time. No personal belongings left in room after discharge.
== END 2021-04-13 00:04 | disposition home or self-care (01) ==
LOC: ED 21:00
DX: S30.0XXA Contusion of lower back and pelvis, initial encounter (principal); W01.0XXA Fall on same level from slipping, tripping and stumbling without subsequent striking against object, initial encounter; Y93.89 Activity, other specified; Y92.89 Other specified places as the place of occurrence of the external cause; Y99.8 Other external cause status
CPT/HCPCS: 72220; 99283

== ENCOUNTER 2021-06-09 16:35 | Emergency (ER) | payer MEDICAID ==
[~2021-06-09] VITALS: Ht 165.1 cm; Wt 95.6 kg
[~2021-06-09 16:35] MED LIST changes: -OXYC-380 PO; +OXYC-501 PO; +OXYC1TAB16 PO; -OXYC1TAB17 PO
[2021-06-09 16:44] VITALS: BP 146/82
--- NOTE | 2021-06-09 16:50 | NUR ---
PT SEEN IN TRIAGE BY PA. AWARE OF PLAN OF CARE.
--- NOTE | 2021-06-09 18:44 | NUR ---
[id number]
--- NOTE | 2021-06-09 19:00 | NUR ---
not in lobby
--- NOTE | 2021-06-09 19:11 | NUR ---
not in lobby
== END 2021-06-09 19:13 | disposition left against medical advice (07) ==
LOC: ED 16:40
DX: R10.12 Left upper quadrant pain (principal)
CPT/HCPCS: 99281